=== PATIENT | male | born 1960 | race Hispanic/Latino ===

== ENCOUNTER 2024-10-16 10:08 | Emergency (ER) | payer OTHER ==
[~2024-10-16] VITALS: Ht 172.7 cm; Wt 77.1 kg
[2024-10-16 10:43] LABS: BASOPHILS # (AUTO) 0.03 K/uL (0.00-0.20); BASOPHILS % (AUTO) 0.3 % (0.0-5.0); EOSINOPHILS # (AUTO) 0.06 K/uL (0.00-0.70); EOSINOPHILS % (AUTO) 0.6 % (0.0-8.0); HEMATOCRIT 39.5 % (42-54); IMMATURE GRANULOCYTE ABSOLUTE 0.03 K/uL (0-1); LYMPHOCYTES # (AUTO) 1.6 K/uL (1.0-4.8); LYMPHOCYTES % (AUTO) 16.2 % (21.0-51.0); MEAN CORPUSCULAR HEMOGLOBIN 31.2 pg (27.0-33.0); MEAN CORPUSCULAR HGB CONC 34.4 g/dL (32.0-36.0); MEAN CORPUSCULAR VOLUME 90.6 fL (79-99); MONOCYTES # (AUTO) 0.7 K/uL (0.1-1.0); MONOCYTES % (AUTO) 7.1 % (3.0-13.0); NEUTROPHILS # (AUTO) 7.3 K/uL (1.8-7.7); NEUTROPHILS % (AUTO) 75.5 % (40.0-77.0); PLATELET COUNT (AUTO) 215 K/uL (130-400); RED BLOOD CELL COUNT(AUTO) 4.36 MIL/uL (4.50-6.20); RED CELL DISTRIBUTION WIDTH 12.4 % (11.0-15.5); WHITE BLOOD COUNT (AUTO) 9.7 K/uL (4.8-10.8)
--- NOTE | 2024-10-16 10:46 | ERN ---
ED Note History of Present Illness Stated Complaint: DRAINAGE TO PERINUM AREA Chief Complaint: Skin Rash/Abscess Time Seen by MD: 10:13 Dictation: PATIENT IS HERE WITH A POSSIBLE RECURRENT ABSCESS HE HAS HAD TO THE LEFT PERINEAL AREA FOR THE LAST SEVERAL DAYS. HE DENIES FEVER CHILLS NAUSEA VOMITING STATES HE IS NOT A DIABETIC. HE STATES IT HAS BEEN OPEN IN THE PAST. Allergies: Coded Allergies: No Known Allergies (Unverified Allergy, Unknown, 10/16/24) Past Medical History Past Medical History: High Cholesterol, Hypertension Surgical History: Other RN Note Reviewed/Agreed w/PFSH: Yes Review of System Dictation CONSTITUTIONAL: NEGATIVE EXCEPT FOR HPI HEAD/FACE: NEGATIVE EXCEPT FOR HPI EENT: NEGATIVE EXCEPT FOR HPI RESPIRATORY: NEGATIVE EXCEPT FOR HPI GASTROINTESTINAL/ABDOMINAL: NEGATIVE EXCEPT FOR HPI GENITOURINARY: NEGATIVE EXCEPT FOR HPI MUSCULOSKELETAL: NEGATIVE EXCEPT FOR HPI INTEGUMENTARY: NEGATIVE EXCEPT FOR HPI LEFT PERINEAL ABSCESS NEUROLOGICAL/PSYCH: NEGATIVE EXCEPT FOR HPI HEMATOLOGIC/LYMPHATIC: NEGATIVE EXCEPT FOR HPI ALL SYSTEMS NEGATIVE, EXCEPT NOTED ABOVE. 13 POINT REVIEW OF SYSTEMS ASSESSED AND ALL NEGATIVE EXCEPT FOR ABOVE. Initial Vital Sign VS Vital Signs Date Time Temp Pulse Resp B/P (MAP) Pulse Ox O2 Delivery O2 Flow Rate FiO2 10/16/24 10:11 98.2 78 16 149/73 98 Room Air 0 10/16/24 10:11 21 Physical Exam Dictation VITAL SIGNS REVIEWED GENERAL APPEARANCE: ALERT, ORIENTED X 3, MODERATE ACUTE DISTRESS, WELL DEVELOPED, NOURISHED. HEAD AND FACE: NON-TRAUMATIC. EYES: PERRL, PINK CONJUNCTIVAS, EYELID NO TRAUMA, ANTERIOR CHAMBER WITH ARCUS SENILIS. EARS: PINNAS INTACT AND NO SIGNS OF TRAUMA OR ERYTHEMA EAR CANALS CLEAR AND NO DISCHARGE TM NO ERYTHEMA NOSE: NO DISCHARGE, NO BLEEDING. OROPHARYNX: MOUTH NORMAL, TONGUE PINK, PHARYNX CLEAR,NO ERYTHEMA, TONSILS NO EXUDATES, NO ABSCESSES NOTED, MUCOUS MEMBRANE MOIST NECK: SUPPLE, NON-TENDER, NO THYROMEGALY, NO MASSES, NO JVD, NO BRUITS BREAST:DEFERRED CHEST:NO TENDERNESS, NO CREPITUS, NO PARADOXICAL MOVEMENT, NO RETRACTIONS LUNGS:CLEAR, WELL-VENTILATED, SYMMETRIC, NO RALES, NO WHEEZING, NO RHONCHI, NO STRIDOR, GOOD BREATH SOUNDS BILATERALLY HEART: REGULAR RATE, REGULAR RHYTHM, NO MURMUR, NO GALLOPS VASCULAR: NO PERIPHERAL EDEMA, ABDOMEN: SOFT, POSITIVE BOWEL SOUNDS, NONDISTENDED, NO GUARDING, NONTENDER, NO REBOUND, NO MASSES NO HEPATOMEGALY, NO SPLENOMEGALY, NO LYNCH'S SIGN, NO HERNIAS. RECTAL: DEFERRED GENITAL: LEFT MEDIAL PERINEAL TENDERNESS SWELLING WITH FLUCTUANCE. SCAR NOTED FROM PRIOR I AND D SITE. DRAINING. APPROXIMATELY 2 X 2 CM NEUROLOGICAL: NORMAL SPEECH, MOTOR FUNCTION INTACT, SENSORY FUNCTION INTACT MUSCULOSKELETAL: NECK NONTENDER, FULL RANGE OF MOTION, BACK NONTENDER, FULL RANGE OF MOTION, EXTREMITIES: NONTENDER, FULL RANGE OF MOTION SKIN: COLOR PINK, DRY, NO TURGOR, NO RASH, NO LACERATIONS, NO ABRASIONS, NO CONTUSIONS. LYMPHATIC: DEFERRED Results (Laboratory/Radiology) Laboratory/Radiology Laboratory Tests Test 10/16/24 10:31 White Blood Count 9.7 K/uL (4.8-10.8) Red Blood Count 4.36 MIL/uL (4.50-6.20) L Hemoglobin 13.6 g/dL (14.0-18.0) L Hematocrit 39.5 % (42-54) L Mean Corpuscular Volume 90.6 fL (79-99) Mean Corpuscular Hemoglobin 31.2 pg (27.0-33.0) Mean Corpuscular Hemoglobin Concent 34.4 g/dL (32.0-36.0) Red Cell Distribution Width 12.4 % (11.0-15.5) Platelet Count 215 K/uL (130-400) Mean Platelet Volume 9.3 fL (7.5-10.5) Immature Granulocyte % (Auto) 0.3 % (0-1) Neutrophils (%) (Auto) 75.5 % (40.0-77.0) Lymphocytes (%) (Auto) 16.2 % (21.0-51.0) L Monocytes (%) (Auto) 7.1 % (3.0-13.0) Eosinophils (%) (Auto) 0.6 % (0.0-8.0) Basophils (%) (Auto) 0.3 % (0.0-5.0) Neutrophils # (Auto) 7.3 K/uL (1.8-7.7) Lymphocytes # (Auto) 1.6 K/uL (1.0-4.8) Monocytes # (Auto) 0.7 K/uL (0.1-1.0) Eosinophils # (Auto) 0.06 K/uL (0.00-0.70) Basophils # (Auto) 0.03 K/uL (0.00-0.20) Absolute Immature Granulocyte (auto 0.03 K/uL (0-1) Nucleated Red Blood Cells 0.0 % (0.0-0.19) Sodium Level 138 mmol/L (136-145) Potassium Level 3.4 mmol/L (3.5-5.1) L Chloride Level 101 mmol/L (101-111) Carbon Dioxide Level 27 mmol/L (21-32) Blood Urea Nitrogen 16 mg/dL (7-18) Creatinine 1.1 mg/dL (0.5-1.3) Glomerular Filtration Rate Calc 74 mL/min (>90) Random Glucose 158 mg/dL (70-105) H Total Calcium 9.6 mg/dL (8.5-10.1) Labs Reviewed?: Yes ED Course ED Course Orders Procedure Category Date Status Time Saline Lock Iv CPOE 10/16/24 Transmitted 10:14 Cbc With Differential LAB 10/16/24 Complete 10:14 Basic Metabolic Panel LAB 10/16/24 Complete 10:14 Clindamycin Ivpb PHA 10/16/24 Complete 600mg/50ml (Cleocin 10:41 Aerobic Culture SINDHU 10/16/24 In Process 10:41 Lidocaine Hcl 1% 20ml PHA 10/16/24 Complete Vial (Lidocaine Hc 10:41 Morphine 4mg Syg PHA 10/16/24 Complete (Morphine 4mg Syg) 11:00 Ondansetron 4mg Inj PHA 10/16/24 Complete (Zofran 4mg Inj) 11:00 Current Medications Medications (Trade) Dose Ordered Sig/Cody Route PRN Reason Start Time Stop Time Status Last Admin Dose Admin Clindamycin HCl/ Dextrose 50 ml @ 100 mls/hr ONCE STAT IV 10/16/24 10:41 10/16/24 11:10 DC 10/16/24 11:15 Lidocaine HCl (Lidocaine HCl 1% 20ml Vial) 10 ml ONCE STAT INJ 10/16/24 10:41 10/16/24 10:44 DC 10/16/24 11:14 Morphine Sulfate (morPHINE 4MG SYG) 4 mg ONCE ONCE IVP 10/16/24 11:00 10/16/24 11:01 DC 10/16/24 11:15 Ondansetron HCl (zoFRAN 4MG INJ) 4 mg ONCE ONCE IVP 10/16/24 11:00 10/16/24 11:01 DC 10/16/24 11:15 Vital Signs Date Time Temp Pulse Resp B/P (MAP) Pulse Ox O2 Delivery O2 Flow Rate FiO2 10/16/24 10:11 98.2 80 16 149/73 98 Room Air* 0 21 10/16/24 10:11 98.2 78 16 149/73 98 Room Air 0 1112 Abscess was I and D, no white count at this time. Patient discharged home with clindamycin and Tylenol with codeine told to return in 10 days for suture removal. He has a primary care doctor Medical Decision Making MDM MDM: Differential diagnosis: Abscess/follicular cyst/cellulitis/infection Rationale: Tests considered and ordered secondary to shared decision making include: Basic labs/I and D Previous outside records reviewed: Old ER visits. Reviewed Risk of complication and/or morbidity or mortality of patient management: None Medications-Per medication reconciliation see nurse's notes Need for hospitalization: Patient does not meet criteria for hospitalization. No Need for emergency major/minor surgery: I and D of perineal abscess There are no social concerns with this patient. Prescription drug management clindamycin/Tylenol with codeine Prescriptions will include symptomatic care Patient's prior external medical records from other ER visits were reviewed by me as indicated. Prior testing and results from previous visits were reviewed. Prior tests were taken into account with medical decision making and resource utilization, independent historian/historians were used to obtain complete medical history. I independently interpreted the test that were performed, results were reviewed by me and considered findings on radiology if ordered. Medical management and examination interpretation discussions were had by me with other qualified healthcare professionals as indicated for the patient's care. Procedure Procedure Dictation: 1105, procedure explained to patient he agreed to proceed Patient placed in lithotomy position Perineal abscess prepped sterilely Used3 ml 1% lidocaine plain for local anesthetic Approximately 1.5 cm incision made to most fluctuant area. Less than 1 mL purulent drainage and culture collected. No loculations Patient bleeding from inferior aspect of the incision Placed one single 4-0 Prolene suture to tamponade bleeding Patient tolerated well DX & DISP Disposition: Discharge Departure Impression: Primary Impression: Perineal abscess, superficial Condition: Stable Scripts Clindamycin HCl (Clindamycin HCl) 300 Mg Capsule 1 CAP PO QID for 7 Days, #28 CAP 0 Refills Prov: DEDE LO NP 10/16/24 Acetaminophen with Codeine (Acetaminophen-Cod #3 Tablet) 300 Mg-30 Mg Tablet 1 TAB PO Q4H PRN for MODERATE TO SEVERE PAIN, #10 TAB 0 Refills Prov: DEDE LO NP 10/16/24 Additional Instructions: Follow-up with primary care provider in 1 to 2 days. Take medications as directed here in the emergency room. Okay to continue home medications unless otherwise discussed during your visit in the emergency room today. Return to your nearest emergency room if symptoms worsen or if there is no improvement. Call 911 if you need immediate assistance. Take Tylenol or Motrin over -the-counter as needed and if no contraindications are present. Increase oral hydration. A wound culture or urine culture was ordered here in the emergency room department please follow-up with primary care provider and advise them to get repeat ports from our facility. If you had any Vincent wrap/splints that were applied here, please do not remove them until you see your primary care or specialty. Take antibiotics as directed until gone. Okay to shower and wash area with soap and water., replace dressing. Sutures to be removed in 10 days. Referrals: HA SARGENT MD (PCP) Time of Disposition: 11:16 I have reviewed the case, and I agree with, Diagnosis and Plan DEDE LO NP Oct 16, 2024 10:46
[2024-10-16 10:52] LABS: CREATININE 1.1 mg/dL (0.5-1.3); POTASSIUM 3.4 mmol/L (3.5-5.1)
[2024-10-16] MEDS: LIDOCAINE HCL 1% 20 ML VIAL INJ STA (11:14)
[2024-10-16] MEDS: CLINDAMYCIN IVPB 600MG/50ML 50 ML IV STA (11:15)
[2024-10-16] MEDS: morPHINE 4 MG SYG IVP ONE (11:15)
[2024-10-16] MEDS: ondanSETRON 4MG INJ IVP ONE (11:15)
[2024-10-16] MEDS ORDERED: CLIN-141 PO (11:33)
[2024-10-16] MEDS ORDERED: ACET-2079 PO (11:33)
[2024-10-16 12:16] VITALS: BP 135/84; PULSE 82; RESP 20; TEMP 98.4; O2SAT 98
== END 2024-10-16 12:17 | disposition home or self-care (01) ==
LOC: EDH 10:08
DX: L02.215 Cutaneous abscess of perineum (principal); E78.00 Pure hypercholesterolemia, unspecified; I10 Essential (primary) hypertension
CPT/HCPCS: 99284; 96365; 10060; 96375 ×2; 80048; 85025; 87070; 36415; J2405; J2270; J3490